=== PATIENT | female | born 1995 | race Caucasian/White ===

== ENCOUNTER 2018-04-13 19:14 | Emergency (ER) | payer BC, OTHER ==
[2018-04-13] MEDS ORDERED: ONDANSETRON 4 MG INJ IV (19:50)
[2018-04-13] MEDS ORDERED: SOD CHLORIDE 0.9% 1,000 ML IV (19:50)
[2018-04-13] MEDS: ONDANSETRON (ODT) 4 MG TAB ODT (20:03)
== END 2018-04-13 20:19 | disposition home or self-care (01) ==
LOC: E/R 19:14
DX: R11.2 Nausea with vomiting, unspecified (principal); F15.93 Other stimulant use, unspecified with withdrawal; F17.210 Nicotine dependence, cigarettes, uncomplicated
CPT/HCPCS: 81025; 99283